=== PATIENT | male | born 1970 | race Two or more races ===

== ENCOUNTER 2020-07-06 11:16 | Emergency (ER) | payer OTHER ==
[~2020-07-06] VITALS: Ht 188 cm; Wt 149.7 kg
[2020-07-06] MEDS ORDERED: CALAN SR 120MG120 MG (11:41)
[2020-07-06] MEDS ORDERED: ATACAND16 MG (11:41)
[2020-07-06] MEDS ORDERED: LIPITOR20 MG (11:41)
[2020-07-06] MEDS ORDERED: CIPRO500 MG PO (18:33)
[2020-07-06] MEDS ORDERED: PEPCID AC20 MG PO (18:33)
[2020-07-06] MEDS ORDERED: KETO10TA2 PO (18:33)
[2020-07-06] MEDS ORDERED: TAMS0.4C PO (18:33)
[2020-07-06] MEDS ORDERED: DEXILANT30 MG PO (18:42)
== END 2020-07-06 19:00 | disposition home or self-care (01) ==
LOC: ER 11:16
DX: K80.20 Calculus of gallbladder without cholecystitis without obstruction (principal); N20.1 Calculus of ureter